=== PATIENT | female | born 1990 | race Hispanic/Latino ===

== ENCOUNTER 2018-09-23 11:01 | Emergency (ER) | payer MEDICAID, OTHER ==
[2018-09-23] MEDS ORDERED: ACETAMINOPHEN 325 MG TAB ONE (11:31)
[2018-09-23 11:44] LABS: BASOPHILS % (AUTO) 0.4 % (0.0-5.0); EOSINOPHILS % (AUTO) 0.7 % (0.0-8.0); MEAN CORPUSCULAR HGB CONC 33.5 g/dL (32.0-36.0); MEAN CORPUSCULAR VOLUME 92.4 fL (79-99); MONOCYTES % (AUTO) 6.6 % (3.0-13.0); NEUTROPHILS % (AUTO) 82.3 % (40.0-77.0); PLATELET COUNT (AUTO) 304 K/uL (130-400); RED BLOOD CELL COUNT(AUTO) 3.79 MIL/uL (4.00-5.50); RED CELL DISTRIBUTION WIDTH 14.2 % (11.0-15.5); WHITE BLOOD COUNT (AUTO) 14.4 K/uL (4.8-10.8)
[2018-09-23 11:52] LABS: CREATININE 0.5 mg/dL (0.5-1.5); POTASSIUM 3.8 mmol/L (3.5-5.1)
[2018-09-23 11:56] LABS: RAPID GROUP A STREP NEGATIVE (NEGATIVE)
[2018-09-23 12:05] LABS: APPEARANCE,URINE Clear (CLEAR); BILIRUBIN,URINE Negative (NEGATIVE); COLOR,URINE Yellow (YELLOW); GLUCOSE, URINE (UA) Negative (NEGATIVE); KETONES,URINE Negative (NEGATIVE); LEUKOCYTE ESTERASE ,URINE Small (NEGATIVE); NITRATE,URINE Negative (NEGATIVE); OCCULT BLOOD,URINE Negative (NEGATIVE); PROTEIN,URINE Negative (NEGATIVE)
[2018-09-23 12:32] LABS: BACTERIA,URINE Few /HPF (None Seen); RBC,URINE None Seen /HPF (0-1); WBC,URINE 0-1 /HPF (0-1)
== END 2018-09-23 12:50 | disposition home or self-care (01) ==
LOC: EDH 11:01
DX: O98.513 Other viral diseases complicating pregnancy, third trimester (principal); J11.1 Influenza due to unidentified influenza virus with other respiratory manifestations; Z3A.29 29 weeks gestation of pregnancy
CPT/HCPCS: 36415; 80048; 81001; 85025; 87804; 87880

== ENCOUNTER 2021-04-23 11:05 | Emergency (ER) | payer MEDICAID, OTHER ==
[~2021-04-23] VITALS: Ht 165.1 cm; Wt 95.3 kg
[2021-04-23] MEDS ORDERED: KETOROLAC 60 MG VIAL (30MG/ML) IM SCH (12:00)
[2021-04-23] MEDS ORDERED: CYCLOBENZAPRINE HCL 10 MG TABLET PO SCH (12:00)
[2021-04-23] MEDS ORDERED: MECLIZINE HCL 25 MG TABLET PO SCH (12:30)
[2021-04-23] MEDS ORDERED: ONDA4TAB10 PO (13:47)
[2021-04-23] MEDS ORDERED: MECL-226 PO (13:47)
[2021-04-23] MEDS ORDERED: CYCL10TA16 PO (13:47)
[2021-04-23] MEDS ORDERED: IBUP-1552 PO (13:47)
[2021-04-23 13:55] VITALS: BP 122/80
== END 2021-04-23 13:56 | disposition home or self-care (01) ==
LOC: EEVIPCON 11:05 → EDH 11:05
DX: S06.0X0A Concussion without loss of consciousness, initial encounter (principal); S00.11XA Contusion of right eyelid and periocular area, initial encounter; S00.03XA Contusion of scalp, initial encounter; Y08.89XA Assault by other specified means, initial encounter; Y93.89 Activity, other specified; Y92.89 Other specified places as the place of occurrence of the external cause; Y99.8 Other external cause status
CPT/HCPCS: 70450; 70486; 81025; 96372; 99284; J1885